=== PATIENT | male | born 1985 | race Hispanic/Latino ===

== ENCOUNTER 2022-07-26 16:48 | Emergency (ER) | payer SELFPAY ==
[2022-07-26] MEDS ORDERED: Ondansetron PF 4 MG/2 ML Vial ONE (17:25)
[2022-07-26 17:57] LABS: #Basophils 0.1 thou/uL (0.0-0.2); #Eosinphils 0.1 thou/uL (0.0-0.7); #Monocytes 0.7 thou/uL (0.11-0.59); %Basophils 0.4 % (0.0-1.0); %Eosinophils 0.6 % (0.0-10.0); %Lymphocytes 15.9 % (21.0-51.0); %Neutrophils 77.7 % (42.0-75.0); Hemoglobin 14.8 g/dL (14.0-18.0); Mean Corpuscular HGB CONC 33.9 g/dL (32.0-36.0); Mean Corpuscular Hemoglobin 29.1 pg (27.0-31.0); Mean Corpuscular Volume 85.8 fl (78.0-98.0); Mean Platelet Volume 11.6 fL (7.4-10.4); Platelet Count 230 10x3/uL (130-400); RBC Distribution Width 12.7 % (11.5-14.5); Red Blood Cell (RBC) Count 5.08 mill/uL (4.70-6.10); White Blood Cell (WBC) Count 14.1 10x3/uL (4.8-10.8)
[2022-07-26 18:24] LABS: ALT (SGPT) 9 U/L (8-55); AST (SGOT) 14 U/L (5-34); Albumin 3.5 g/dL (3.5-5.0); Alkaline Phosphatase 54 U/L (40-110); Anion Gap 10 mmol/L (10-20); BUN (Urea Nitrogen) 11 mg/dL (8.9-20.6); Bilirubin, Total 0.4 mg/dL (0.2-1.2); CK (CPK) 81 U/L (30-200); Calc. Creatinine Clearance 0 mL/min (70-130); Calcium 8.8 mg/dL (7.8-10.44); Carbon Dioxide 24 mmol/L (22-29); Chloride 111 mmol/L (98-107); Estimated GFR 93; Globulin 1.7 g/dL (2.4-3.5); Glucose 110 mg/dL (70-105); Magnesium 1.8 mg/dL (1.6-2.6); Protein, Total 5.2 g/dL (6.0-8.3); Sodium 141 mmol/L (136-145)
== END 2022-07-26 18:20 | disposition home or self-care (01) ==
LOC: ERS 16:48
DX: E86.0 Dehydration (principal); D72.829 Elevated white blood cell count, unspecified
CPT/HCPCS: 36415; 80053; 82550; 83735; 85025; 93005; 96361; 96374; J2405

== ENCOUNTER 2022-09-26 21:29 | Emergency (ER) | payer SELFPAY ==
[2022-09-26] MEDS ORDERED: Acetaminophen 500 MG TAB ONE (22:11)
[2022-09-26 22:27] LABS: #Eosinphils 0.3 thou/uL (0.0-0.7); #Monocytes 0.7 thou/uL (0.11-0.59); #Neutrophils 4.9 thou/uL (1.40-6.50); %Basophils 0.5 % (0.0-1.0); %Eosinophils 3.1 % (0.0-10.0); %Monocytes 8.1 % (0.0-10.0); %Neutrophils 58.2 % (42.0-75.0); Hematocrit 40.8 % (42.0-52.0); Hemoglobin 14.1 g/dL (14.0-18.0); Mean Corpuscular HGB CONC 34.6 g/dL (32.0-36.0); Mean Corpuscular Hemoglobin 29.4 pg (27.0-31.0); Mean Corpuscular Volume 85.2 fl (78.0-98.0); Platelet Count 277 10x3/uL (130-400); RBC Distribution Width 13.2 % (11.5-14.5); Red Blood Cell (RBC) Count 4.79 mill/uL (4.70-6.10); White Blood Cell (WBC) Count 8.4 10x3/uL (4.8-10.8)
[2022-09-26 22:49] LABS: ALT (SGPT) 11 U/L (8-55); AST (SGOT) 14 U/L (5-34); Alkaline Phosphatase 59 U/L (40-110); Anion Gap 15 mmol/L (10-20); BUN (Urea Nitrogen) 11 mg/dL (8.9-20.6); Bilirubin, Total 0.3 mg/dL (0.2-1.2); CK (CPK) 75 U/L (30-200); Calc. Creatinine Clearance 0 mL/min (70-130); Calcium 9.3 mg/dL (7.8-10.44); Carbon Dioxide 23 mmol/L (22-29); Chloride 104 mmol/L (98-107); Estimated GFR 88; Glucose 115 mg/dL (70-105); Potassium 3.7 mmol/L (3.5-5.1); Sodium 138 mmol/L (136-145)
== END 2022-09-26 23:34 | disposition home or self-care (01) ==
LOC: ERS 21:29
DX: S76.811A Strain of other specified muscles, fascia and tendons at thigh level, right thigh, initial encounter (principal); X50.0XXA Overexertion from strenuous movement or load, initial encounter
CPT/HCPCS: 36415; 80053; 82550; 85025; 96360

== ENCOUNTER 2022-09-30 12:11 | Emergency (ER) | payer SELFPAY ==
[2022-09-30] MEDS ORDERED: Proparacaine 0.5% Opth 15 ML BOT ONE (12:34)
[2022-09-30] MEDS ORDERED: Fluorescein Opthalmic Strip ONE (12:36)
== END 2022-09-30 13:55 | disposition home or self-care (01) ==
LOC: ERS 12:11
DX: S02.2XXA Fracture of nasal bones, initial encounter for closed fracture (principal); S00.211A Abrasion of right eyelid and periocular area, initial encounter; W22.8XXA Striking against or struck by other objects, initial encounter
CPT/HCPCS: 70486

== ENCOUNTER 2023-04-16 14:34 | Observation (INO) | payer SELFPAY ==
[2023-04-16 15:52] LABS: #Eosinphils 0.4 thou/uL (0.0-0.7); #Monocytes 0.9 thou/uL (0.11-0.59); #Neutrophils 8.4 thou/uL (1.40-6.50); %Basophils 0.3 % (0.0-1.0); %Eosinophils 3.5 % (0.0-10.0); %Lymphocytes 19.4 % (21.0-51.0); %Monocytes 7.4 % (0.0-10.0); %Neutrophils 69.1 % (42.0-75.0); Hematocrit 43.1 % (42.0-52.0); Hemoglobin 14.6 g/dL (14.0-18.0); Mean Corpuscular HGB CONC 33.9 g/dL (32.0-36.0); Mean Corpuscular Hemoglobin 29.5 pg (27.0-31.0); Mean Corpuscular Volume 87.1 fl (78.0-98.0); Mean Platelet Volume 11.6 fL (7.4-10.4); Platelet Count 261 10x3/uL (130-400); RBC Distribution Width 13.3 % (11.5-14.5); Red Blood Cell (RBC) Count 4.95 mill/uL (4.70-6.10); White Blood Cell (WBC) Count 12.1 10x3/uL (4.8-10.8)
[2023-04-16] MEDS ORDERED: Pantoprazole 40 MG VIAL ONE (15:57)
[2023-04-16 16:10] LABS: ALT (SGPT) 8 U/L (8-55); AST (SGOT) 10 U/L (5-34); Albumin 4.4 g/dL (3.5-5.0); Alkaline Phosphatase 72 U/L (40-110); Anion Gap 13 mmol/L (10-20); BUN (Urea Nitrogen) 5 mg/dL (8.9-20.6); Bilirubin, Total 0.3 mg/dL (0.2-1.2); Calc. Creatinine Clearance 0 mL/min (70-130); Calcium 9.2 mg/dL (7.8-10.44); Carbon Dioxide 25 mmol/L (22-29); Chloride 107 mmol/L (98-107); Estimated GFR 118; Globulin 2.7 g/dL (2.4-3.5); Glucose 105 mg/dL (70-105); Lipase 54 U/L (8-78); Potassium 3.8 mmol/L (3.5-5.1); Protein, Total 7.1 g/dL (6.0-8.3); Sodium 141 mmol/L (136-145)
[2023-04-16] MEDS ORDERED: Iopamidol-370 76% 500 ML MDV (1 ML CHARGE) ONE (16:11)
[2023-04-16 16:13] LABS: Troponin I Less than 0.010 ng/mL (< 0.028)
[2023-04-16 18:15] LABS: Bilirubin Negative (Negative); Blood, Urine Negative (Negative); CAUTI Indications for Culture Pelvic or flank pain; Clarity Clear (Clear); Glucose, Urine (Dipstick) Normal (Negative); Ketone, Urine Negative (Negative); Leukocyte 75 Leu/uL (Negative); Mucous/LPF 1+ LPF (<2+); Nitrite Negative (Negative); Protein, Urine (Dipstick) Negative (Neg-Trace); RBC/HPF 0-3 HPF (0-3); Squamous Epithelial None Seen HPF (0-3); Urobilinogen Normal mg/dL (Less than 2)
[2023-04-16 18:16] LABS: Bacteria/HPF Rare-Few HPF (None Seen)
[2023-04-16 18:17] LABS: Urine Culture Reflex Yes Yes
[2023-04-16] MEDS ORDERED: Dextrose 50% Abboject 50 ML SYRINGE SLOW IVP PRN (20:49)
[2023-04-16] MEDS ORDERED: Dextrose 5% in Water 1,000 ML IV PRN (20:49)
[2023-04-16] MEDS ORDERED: Glucagon 1 MG/ML KIT IM PRN (20:49)
[2023-04-16] MEDS ORDERED: Ondansetron PF 4 MG/2 ML Vial IVP PRN (20:50)
[2023-04-16] MEDS ORDERED: Ondansetron ODT 4 MG TAB PO PRN (20:50)
[2023-04-16] MEDS ORDERED: Morphine 2 MG/ML VIAL SLOW IVP PRN (20:50)
[2023-04-16] MEDS: Famotidine 20 MG TAB PO SCH (21:00)
[2023-04-16] MEDS ORDERED: Morphine 4 MG/ML VIAL ONE (21:09)
[2023-04-16] MEDS ORDERED: Ondansetron PF 4 MG/2 ML Vial ONE ×2 (21:09→21:54)
[2023-04-16] MEDS ORDERED: Piperacillin/Tazobactam 4.5 GM VIAL ONE (21:09)
[2023-04-16] MEDS ORDERED: Sodium Chloride 0.9% 100 ML ONE (21:09)
[2023-04-16] MEDS ORDERED: fentaNYL 50 mcg/mL 1 mL Vial ONE (21:51)
[2023-04-16] MEDS ORDERED: Piperacillin/Tazobactam 4.5 GM in Sodium Chloride 0.9% 100 ML IVPB SCH (22:00)
[2023-04-16] MEDS: Ketorolac Tromethamine 30 MG (1 mL) VIAL IVP SCH ×2 (22:43→23:34)
[2023-04-16] MEDS: Lactated Ringer's 1,000 ML IV SCH ×2 (22:44→23:37)
[2023-04-16 23:04] VITALS: BMI 24.7
[2023-04-16] MEDS: TETANUS, DIPHTHERIA TOX,ADULT (TDVAX) 0.5 ML VIAL IM ONE (23:32)
[2023-04-16] MEDS: Acetaminophen 500 MG TAB PO SCH (23:33)
[2023-04-16] MEDS: Acetaminophen 325 MG TAB PO SCH (23:37)
[2023-04-17] MEDS: Piperacillin/Tazobactam 3.375 GM in Sodium Chloride 0.9% 100 ML IVPB SCH (02:07)
[2023-04-17] MEDS: traMADol HCl 50 MG TAB PO PRN (10:27)
[2023-04-17] MEDS ORDERED: EPINEPHrine 1 MG/ML VIAL ONE (13:49)
[2023-04-17] MEDS ORDERED: Bupivacaine PF 0.5% 30 ML VIAL ONE (13:49)
[2023-04-17] MEDS ORDERED: Morphine 2 MG/ML VIAL SLOW IVP PRN (13:58)
[2023-04-17] MEDS ORDERED: fentaNYL PF 100 MCG/2 ML SYRINGE ONE (14:15)
[2023-04-17] MEDS ORDERED: PROPOFOL 40 ML ONE (14:15)
[2023-04-17] MEDS ORDERED: Lidocaine 1% PF 5 ML VIAL ONE (14:16)
[2023-04-17] MEDS ORDERED: Rocuronium Bromide 10 MG/ML (10ML VIAL) ONE (14:16)
[2023-04-17] MEDS ORDERED: Ondansetron PF 4 MG/2 ML Vial ONE (14:50)
[2023-04-17] MEDS ORDERED: Dexamethasone 4 mg/ml Vial ONE (14:50)
[2023-04-17] MEDS ORDERED: Meperidine HCl/PF 25 MG/ML VIAL SLOW IVP PRN (14:51)
[2023-04-17] MEDS ORDERED: Ondansetron HCl/PF 4 MG/2 ML Vial IVP PRN (14:51)
[2023-04-17] MEDS ORDERED: PACU-Morphine 4MG/ML VIAL SLOW IVP PRN (14:51)
[2023-04-17] MEDS ORDERED: Promethazine HCl 25 MG/ML VIAL IM PRN (14:51)
[2023-04-17] MEDS ORDERED: SUGAMMADEX SODIUM 200 MG/2 ML VIAL ONE ×2 (14:52)
[2023-04-17] MEDS ORDERED: Dexmedetomidine 200 MCG/2 ML VIAL ONE (15:07)
[2023-04-17] MEDS ORDERED: Ibuprofen 600 MG TAB PO PRN (15:26)
[2023-04-17] MEDS ORDERED: fentaNYL 50 mcg/mL 1 mL Vial ONE ×3 (15:44→16:04)
[2023-04-17] MEDS ORDERED: Morphine 4 MG/ML VIAL SLOW IVP PRN (18:19)
[2023-04-17] MEDS: Ketorolac Tromethamine 30 MG (1 mL) VIAL IVP PRN (20:31)
[2023-04-18 05:41] LABS: #Neutrophils 8.6 thou/uL (1.40-6.50); %Basophils 0.2 % (0.0-1.0); %Eosinophils 0.2 % (0.0-10.0); %Lymphocytes 14.8 % (21.0-51.0); %Monocytes 8.6 % (0.0-10.0); %Neutrophils 75.8 % (42.0-75.0); Hemoglobin 13.2 g/dL (14.0-18.0); Mean Corpuscular HGB CONC 33.8 g/dL (32.0-36.0); Mean Corpuscular Hemoglobin 29.9 pg (27.0-31.0); Mean Corpuscular Volume 88.4 fl (78.0-98.0); Mean Platelet Volume 12.4 fL (7.4-10.4); Platelet Count 245 10x3/uL (130-400); RBC Distribution Width 13.2 % (11.5-14.5); Red Blood Cell (RBC) Count 4.41 mill/uL (4.70-6.10); White Blood Cell (WBC) Count 11.4 10x3/uL (4.8-10.8)
[2023-04-18 06:00] LABS: ALT (SGPT) 211 U/L (8-55); AST (SGOT) 149 U/L (5-34); Albumin 3.8 g/dL (3.5-5.0); Alkaline Phosphatase 103 U/L (40-110); Anion Gap 14 mmol/L (10-20); BUN (Urea Nitrogen) 8 mg/dL (8.9-20.6); Bilirubin, Total 0.3 mg/dL (0.2-1.2); Calc. Creatinine Clearance 143 mL/min (70-130); Calcium 8.7 mg/dL (7.8-10.44); Carbon Dioxide 25 mmol/L (22-29); Chloride 108 mmol/L (98-107); Estimated GFR 118; Globulin 2.7 g/dL (2.4-3.5); Glucose 111 mg/dL (70-105); Potassium 4.5 mmol/L (3.5-5.1); Protein, Total 6.5 g/dL (6.0-8.3); Sodium 142 mmol/L (136-145)
[2023-04-18 08:50] VITALS: BP 110/67; TEMP 98
== END 2023-04-18 10:21 | disposition home or self-care (01) ==
LOC: ERS 14:34 → MSONC 20:53
PROVIDERS: ADMIT Specialist; ATTEND Specialist
PROC: 0FT44ZZ Resection of Gallbladder, Percutaneous Endoscopic Approach (ICD-10-PCS; principal; 2023-04-17)
DX: K80.12 Calculus of gallbladder with acute and chronic cholecystitis without obstruction (principal); K82.1 Hydrops of gallbladder; Z88.6 Allergy status to analgesic agent
CPT/HCPCS: 36415; 71045; 74177; 76705; 80053; 81001; 83605; 83690; 84484; 85025; 86850; 86900; 86901; 87086; 88304; 93005; 96361; 96374; 96375; 96376; C1889; C9113; G0378; J0171; J0665; J1100; J1885; J2270; J2405; J2543; J2704; J3010; J3490; J7120; Q9967